=== PATIENT | male | born 1935 | race Caucasian/White ===

== ENCOUNTER → 2020-11-09 13:01 | Outpatient (BNVA) | payer MEDICARE, SELFPAY | PROVIDERS: Family Provider Family Medicine; PCP Family Medicine; Visit Provider Orthopaedic Surgery | DX: Z47.1 Aftercare following joint replacement surgery (principal); Z96.642 Presence of left artificial hip joint; M85.852 Other specified disorders of bone density and structure, left thigh | CPT/HCPCS: 73502 ==

== ENCOUNTER 2023-06-13 10:54 | Outpatient (CLI) | payer MEDICARE, BC, SELFPAY ==
[2023-06-13 11:18] LABS: D Dimer 1.08 ug/mLFEU (0-0.59)
== END 2023-06-13 10:55 | disposition home or self-care (01) ==
LOC: LAB 10:55
PROVIDERS: PCP Family Medicine; Visit Provider Nurse Practitioner Family
DX: R06.00 Dyspnea, unspecified (principal)
CPT/HCPCS: 85378

== ENCOUNTER 2023-06-13 16:57 | Emergency (ER) | payer MEDICARE, BC, SELFPAY ==
[2023-06-13] VITALS (9 sets, daily range): BP systolic 137–160; BP diastolic 75–86; PULSE 109–121; RESP 18–31; TEMP 36.4–36.6; O2SAT 91–96; BMI 19.1
--- NOTE | 2023-06-13 17:53 | ECG_ITS ---
[facility] Test Date: 2023-06-13 Pat Name: Clyde Dolan Department: Room: Gender: Male Client Professional: : 1935 Requested By: Prashant Sarah Order Number: [id number] Maximo MD: Wilma Fischer M.D. Measurements Intervals [place] Rate: 113 P: 79 AL: 165 QRS: 62 QRSD: 98 T: 73 QT: 303 QTc: 417 Interpretive Statements SINUS TACHYCARDIA ABNORMAL RHYTHM ECG Compared to ECG 08/24/2015 14:00:19 Sinus rhythm no longer present Electronically Signed On 06-13-2023 23:20:35 TRANSFER MAN by Wilma Fischer M.D. [id number]
--- NOTE | 2023-06-13 17:53 | XRR_ITS ---
PROCEDURE INFORMATION: Exam: XR Chest Exam date and time: 06/13/2023 7:01 PM Age: 87 years old Clinical indication: Shortness of breath; Additional info: SOB TECHNIQUE: Imaging protocol: Radiologic exam of the chest. Views: 1 view. COMPARISON: CR XR chest 2V* [id number] 05/03/2022 11:21 AM FINDINGS: Lungs: The lungs are hyperinflated, consistent with COPD. Right lower lobe airspace disease, suspicious for pneumonia. The left lung is clear. Calcified pulmonary granuloma noted in the left lung. Calcified left hilar lymph node consistent with old granulomatous disease. Pleural spaces: Small right pleural effusion. No left pleural effusion. No pneumothorax. Heart/Mediastinum: No cardiomegaly noted. Vasculature: The thoracic aorta is atherosclerotic. Bones/joints: Unremarkable. XR/XR chest 1V portable [id number] IMPRESSION: 1. The lungs are hyperinflated, consistent with COPD. 2. Right lower lobe airspace disease, suspicious for pneumonia. 3. Small right pleural effusion. 4. Findings of old granulomatous disease are identified.
[2023-06-13 18:22] LABS: Basophils # 0.1 10^3/uL (0.0-0.1); Basophils % 0.8 %; Eosinophils % 0.1 %; Hematocrit 39.9 % (37-53); Lymphocytes # 0.7 10^3/uL (0.8-4.8); Lymphocytes % 9.6 %; Mean Corpuscular HGB Conc 32.8 g/dL (30-55); Mean Corpuscular Hemoglobin 34.8 pg (27-33); Mean Corpuscular Volume 106.1 fl (82-101); Monocytes # 0.6 10^3/uL (0.2-0.9); Monocytes % 8.1 %; Neutrophils # 6.22 10^3/uL (1.8-7.7); Nucleated Red Blood Cells % 0 %; Platelet Count 197 10^3/cmm (157-399); Red Blood Count 3.76 10^6/uL (3.85-5.65); Red Cell Distribution Width 12.7 % (12.1-15.1); White Blood Count 7.68 10^3/uL (3.29-11.43)
--- NOTE | 2023-06-13 18:26 | CTR_ITS ---
PROCEDURE INFORMATION: Exam: CTA Chest With Contrast Exam date and time: 06/13/2023 7:39 PM Age: 87 years old Clinical indication: Shortness of breath; Additional info: SOB TECHNIQUE: Imaging protocol: Computed tomographic angiography of the chest with contrast. Exam focused on the arteries. 3D rendering (Not supervised by radiologist): MIP and/or 3D reconstructed images were created by the technologist. Radiation optimization: All CT scans at this facility use at least one of these dose optimization techniques: automated exposure control; mA and/or kV adjustment per patient size (includes targeted exams where dose is matched to clinical indication); or iterative reconstruction. Contrast material: OMNI 350; Contrast volume: 75 ml; Contrast route: INTRAVENOUS (IV); REPORTING DATA: Count of CT and Cardiac NM exams in prior 12 months: This patient has received 0 known CTs and 0 known cardiac nuclear medicine studies in the 12 months prior to the current study. COMPARISON: CR (CHEST, ) 06/13/2023 7:01 PM RADIATION DOSE METRICS: Total DLP (mGy-cm): 227 FINDINGS: Pulmonary arteries: Normal. No pulmonary emboli. Aorta: Unremarkable. No aortic aneurysm. No aortic dissection. Lungs: Calcified granuloma in the left upper lobe. Extensive consolidative pneumonia in the right middle lobe and right lower lobe. Pleural spaces: Unremarkable. No pneumothorax. No pleural effusion. Heart: Unremarkable. No cardiomegaly. No pericardial effusion. Lymph nodes: Unremarkable. No enlarged lymph nodes. Spleen: Calcified splenic granulomata. Kidneys and ureters: Nonobstructing left renal calculus. Bones/joints: Unremarkable. No acute fracture. Soft tissues: Unremarkable. CT/CT angio chest PE protcl [id number] IMPRESSION: 1. No embolus. 2. Right-sided pneumonia.
--- NOTE | 2023-06-13 18:29 | W.ED.SOB ---
HPI - SOB/Dyspnea General: Chief Complaint: Shortness of Breath/Dyspnea Stated Complaint: sent over for ct, lisa wanted to come see Time Seen by Provider: 06/13/23 18:25 Source: patient Mode of arrival: ambulatory Limitations: no limitations History of Present Illness: HPI Narrative: 87-year-old male states that over the last 2 days he has had a cough along with slight dyspnea over the last 2 days. He is seen by his PCP today and had an elevated D-dimer sent here for CTA he is in no distress she denies any pain denies any fevers denies any worsening improving factors. Associated symptoms: Deny abdominal pain, chest pain, fever(s), nausea or vomiting Review of Systems Const: Denies: fever(s), chills, body aches or change in appetite Eyes: Denies: blurry vision or eye discomfort ENMT: Denies: throat pain or dental pain Card: Denies: chest pain Resp: Reports: dyspnea and non-productive cough GI: Denies: abdominal pain, nausea, vomiting or diarrhea : Denies: dysuria Musc: Denies: neck pain or back pain Skin/Breast: Denies: rash Neuro: Denies: headache(s) PFSH ED PFSH: Family History Mother Diabetes Social History Smoking and tobacco/nicotine status: never used tobacco/nicotine Second hand smoke exposure: No Alcohol intake: never Substance/Drug Use: never Physical Exam Const: COMMON NORMALS: no acute distress, patient oriented x3 and healthy appearing HENMT: COMMON NORMALS: normocephalic and atraumatic HEAD & SCALP: normocephalic and atraumatic Eye: COMMON NORMALS: Equal, round and reactive pupils present and EOMs intact bilaterally PUPIL: Yes Equal, round and reactive pupils present Neck/C-Spine: COMMON NORMALS: full ROM and supple Chest: COMMONS NORMALS: normal inspection of the chest and normal palpation of entire chest wall Resp: COMMON NORMALS: normal respiratory effort, No retractions, No use of accessory muscles and clear to auscultation bilaterally AUSCULTATION: clear to auscultation bilaterally Cardio: COMMON NORMALS: regular rate, regular rhythm and No murmurs present (Cardio) RATE: regular rate RHYTHM: regular rhythm GI: COMMON NORMALS: Normal to inspection, nondistended, normoactive bowel sounds present, Soft to palpation, non-tender and no masses PALPATION: Yes Soft to palpation Extremity: COMMON NORMALS: normal to inspection and full ROM Neuro: COMMON NORMALS: patient oriented x3, moves all extremities and no focal motor deficits Psych: COMMON NORMALS: mental status grossly normal, Normal thought process present and cooperative THOUGHT PROCESS: Normal thought process present Skin: COMMON NORMALS: no rashes or lesions noted and no wounds GENERAL SKIN EXAM: no rashes or lesions noted Course Vital Signs: Vital signs: Vital Signs Temperature 98 F 06/13/23 17:30 Pulse Rate 109 H 06/13/23 20:00 Respiratory Rate 30 H 06/13/23 20:00 Blood Pressure 160/85 06/13/23 20:00 Pulse Oximetry 91 06/13/23 20:00 Oxygen Delivery Me thod Room Air 06/13/23 19:35 MDM - SOB/Dyspnea Medical Decision Making Patient presents here with dyspnea sent here from [facility] she had elevated D-dimer CT showed no signs of PE he does have a pneumonia I did offer him admission he states that he feels fine and he does not want to stay in the hospital he like to try treatment at home first we will start him on doxycycline he is to follow-up and return if worsening he understands agrees to plan. Medical Records I reviewed the patient's medical records. Lab Data I reviewed the patient's lab results. 06/13/23 18:06 06/13/23 18:06 Labs/Radiology: Radiology Impressions Chest X-Ray 06/13/23 17:53 IMPRESSION: 1. The lungs are hyperinflated, consistent with COPD. 2. Right lower lobe airspace disease, suspicious for pneumonia. 3. Small right pleural effusion. 4. Findings of old granulomatous disease are identified. Chest CTA 06/13/23 18:26 IMPRESSION: 1. No embolus. 2. Right-sided pneumonia. Laboratory Results WBC 7.68 10^3/uL (3.29-11.43) 06/13/23 18:06 RBC 3.76 10^6/uL (3.85-5.65) L 06/13/23 18:06 Hgb 13.10 g/dL (11.27-16.99) 06/13/23 18:06 Hct 39.9 % (37-53) 06/13/23 18:06 MCV 106.1 fl (82-101) H 06/13/23 18:06 MCH 34.8 pg (27-33) H 06/13/23 18:06 MCHC 32.8 g/dL (30-55) 06/13/23 18:06 RDW 12.7 % (12.1-15.1) 06/13/23 18:06 Plt Count 197 10^3/cmm (157-399) 06/13/23 18:06 MPV 10.0 fL (7.4-10.4) 06/13/23 18:06 Neut % (Auto) 81.0 % 06/13/23 18:06 Lymph % (Auto) 9.6 % 06/13/23 18:06 Woods % (Auto) 8.1 % 06/13/23 18:06 Eos % (Auto) 0.1 % 06/13/23 18:06 Baso % (Auto) 0.8 % 06/13/23 18:06 Neut # (Auto) 6.22 10^3/uL (1.8-7.7) 06/13/23 18:06 Lymph # (Auto) 0.7 10^3/uL (0.8-4.8) L 06/13/23 18:06 Woods # (Auto) 0.6 10^3/uL (0.2-0.9) 06/13/23 18:06 Eos # (Auto) 0.0 10^3/uL (0.0-0.8) 06/13/23 18:06 Baso # (Auto) 0.1 10^3/uL (0.0-0.1) 06/13/23 18:06 Nucleated RBC % (auto) 0 % 06/13/23 18:06 Nucleated RBCs # 0.0 /100WBC 06/13/23 18:06 Sodium 135 mmol/L (136-145) L 06/13/23 18:06 Potassium 4.0 mmol/L (3.5-5.1) 06/13/23 18:06 Chloride 99 mmol/L (98-107) 06/13/23 18:06 Carbon Dioxide 26 mmol/L (22-29) 06/13/23 18:06 Anion Gap 14.0 (5-19) 06/13/23 18:06 BUN 26 mg/dL (8-23) H 06/13/23 18:06 Creatinine 1.0 mg/dL (0.7-1.2) 06/13/23 18:06 GFR Calculation Not Reportable 06/13/23 18:06 Glucose 142 mg/dL (65-115) H 06/13/23 18:06 Calculated Osmolality 287 mOsm/kg (285-295) 06/13/23 18:06 Calcium 9.6 mg/dL (8.5-10.5) 06/13/23 18:06 Total Bilirubin 0.5 mg/dL (0.15-1.2) 06/13/23 18:06 AST 30 U/L (0-40) 06/13/23 18:06 ALT 21 U/L (0-41) 06/13/23 18:06 Alkaline Phosphatase 87 U/L (40-130) 06/13/23 18:06 NT-Pro-B Natriuret Pep 1303 pg/mL (0-450) H 06/13/23 18:06 Total Protein 7.6 g/dL (6.6-8.7) 06/13/23 18:06 Albumin 3.8 g/dL (3.5-5.2) 06/13/23 18:06 Globulin 3.8 g/dL (1.3-4.6) 06/13/23 18:06 All radiology interpretation(s) finalized by discharge EKG Data EKG 1: I personally reviewed and interpreted this EKG as follows: EKG Interpretation Date: 06/13/23 EKG interpretation time: 18:29 Interpretation: sinus tach hr [address] or t wave abnormalities qrs 98 qtc 370 Discharge Plan Discharge Patient Disposition: Home Clinical Impression: Community acquired pneumonia Condition: Stable Prescriptions: New doxycycline hyclate 100 mg tablet 100 mg PO BID 10 Days Qty: 20 0RF Discharge Orders: Discharge ED (Routine); Ordered 06/13/23 Ordered By: Prashant Sarah Referrals: Juan David Hoff MD [Primary Care Provider] - Discharge Diet: Advance as tolerated Discharge Activity: Resume usual activity Patient Instructions: Community Acquired Pneumonia (ED) Coding Level of Care Code ED 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
[2023-06-13 18:54] LABS: Alanine Aminotransferase 21 U/L (0-41); Albumin Level 3.8 g/dL (3.5-5.2); Alkaline Phosphatase 87 U/L (40-130); Aspartate Amino Transferase 30 U/L (0-40); Blood Urea Nitrogen 26 mg/dL (8-23); Calcium 9.6 mg/dL (8.5-10.5); Carbon Dioxide 26 mmol/L (22-29); Chloride 99 mmol/L (98-107); Globulin 3.8 g/dL (1.3-4.6); Glucose 142 mg/dL (65-115); NT Pro B Type Natriuretic Pept 1303 pg/mL (0-450); Osmolality Calculated 287 mOsm/kg (285-295); Sodium 135 mmol/L (136-145); Total Bilirubin 0.5 mg/dL (0.15-1.2); Total Protein 7.6 g/dL (6.6-8.7)
[2023-06-13] MEDS: iohexol 350 mg/mL 500 mL Btl (per mL) IV (19:42)
[2023-06-13 19:43] LABS: Slide Review Slide Review Perform
== END 2023-06-13 20:44 | disposition home or self-care (01) ==
PROVIDERS: Emergency Provider Emergency Medicine; PCP Family Medicine
DX: J18.9 Pneumonia, unspecified organism (principal); R06.00 Dyspnea, unspecified
CPT/HCPCS: 36415; 71045; 71275; 80053; 83880; 85025; 85378; 93005; 99285; Q9967